=== PATIENT | male | born 2005 | race African-American/Black ===

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

== ENCOUNTER 2023-02-10 11:44 | Emergency (ER) | payer OTHER ==
[2023-02-10 11:57] VITALS: BP 126/75; RESP 18; TEMP 99; BMI 21.8
[2023-02-10 12:25] VITALS: PULSE 88
== END 2023-02-10 12:49 | disposition home or self-care (01) ==
LOC: FER 11:44
DX: L60.9 Nail disorder, unspecified (principal)
CPT/HCPCS: 99282-25